=== PATIENT | male | born 1965 | race Caucasian/White ===

== ENCOUNTER → 2017-05-01 | Outpatient (CLI) | payer OTHER ==
--- NOTE | 2017-05-01 18:45 | MRI ---
Procedure: MR LUMBAR SPINE WITHOUT IV CONTRAST Exam Date: 05/01/2017 12:00 AM CDT Ordering Provider: BECCA YUN Clinical Indication: RADICULOPATHY Comparison: None Technique: Multiplanar, multisequence MR images of the lumbar spine were obtained. Findings: No evidence of vertebral body compression deformity or acute fracture. Spinal cord terminates at the mid L1 level and is normal in signal morphology. Cauda equina separate appropriately. T12-L1: Unremarkable. L1-L2: Unremarkable. L2-L3: Unremarkable. L3-L4: Degenerative disc changes without focal disc herniation. No stenosis. L4-L5: Unremarkable. L5-S1: Diffuse disc bulge without significant facet arthrosis. No spinal canal stenosis yet there is mild bilateral neural foraminal stenosis. Prevertebral and paravertebral soft tissues are unremarkable. Impression: Multilevel/multifactorial lumbar spondylosis greatest at the L5-S1 level as outlined above. No high-grade stenosis identified. Electronically signed by: Johann Rivera MD 05/01/2017 6:44 PM CDT
== END | disposition home or self-care (01) ==
LOC: MRI 13:01
PROVIDERS: ATTEND Family Medicine
DX: M54.16 Radiculopathy, lumbar region (principal)

== ENCOUNTER → 2017-08-08 | Outpatient (CLI) | payer OTHER ==
--- NOTE | 2017-08-10 10:13 | RAD ---
EXAM DESCRIPTION: Chest,2 Views CLINICAL HISTORY: BRONCHITIS, ACUTE COMPARISON: 2 view chest 04/30/2013 TECHNIQUE: PA, lateral views. FINDINGS: Lungs: Minimal perihilar peribronchial wall thickening but stable since the prior study. Pleural spaces: No effusion or pneumothorax bilaterally. Heart: Normal size. Pulmonary Vascularity: Not increased. Mediastinum: Not widened. Aorta: Unremarkable. Bony Thorax/Spine: No acute bony thoracic abnormalities. Minimal endplate marginal spurs. IMPRESSION: Recurrent mild bronchitis, but stable since the prior study April 2013. Bacterial pneumonia unlikely. Electronically signed by: Ulises Woodruff MD 08/10/2017 10:12 AM [facility]
== END ==
LOC: RAD 17:29
PROVIDERS: ATTEND Nurse Practitioner Acute Care
DX: J20.9 Acute bronchitis, unspecified (principal)

== ENCOUNTER → 2020-02-03 | Outpatient (CLI) | payer OTHER | LOC: YCFC.O 10:14 | PROVIDERS: ATTEND Nurse Practitioner | DX: Z03.818 Encounter for observation for suspected exposure to other biological agents ruled out (principal); Z20.828 Contact with and (suspected) exposure to other viral communicable diseases ==

== ENCOUNTER 2020-02-14 17:49 | Emergency (ER) | payer OTHER ==
[2020-02-14 18:47] VITALS: TEMP 97
[2020-02-14] MEDS ORDERED: SODIUM CHLORIDE 0.9% 1000ML 1,000 ML IVS ONE (19:00)
[2020-02-14] MEDS ORDERED: IPRATROPIUM/ALBUTEROL 3 ML VIAL NEB ONE (19:01)
[2020-02-14] MEDS ORDERED: ALBUTEROL SULFATE 2.5 MG/3 ML VIAL NEB SCH (19:15)
[2020-02-14 20:06] VITALS: O2SAT 97
--- NOTE | 2020-02-14 20:17 | CT ---
EXAM: Chest w/Contrast HISTORY: worsening cough, sob, fever. 12 days s/p +Covid COMPARISON: 08/08/2017 TECHNIQUE: Contiguous axial images of the chest were obtained from the thoracic inlet to the upper abdomen without intravenous contrast followed by multiplanar reformats. This exam was performed according to our departmental dose-optimization program, which includes automated exposure control, adjustment of the mA and/or kV according to patient size and/or use of iterative reconstruction technique. FINDINGS: Bilateral diffusely scattered groundglass lung opacities with interspersed intralobular septal thickening, with peripheral distribution. No pneumothorax or pleural effusion. Heart size normal. No pericardial effusion. No mediastinal adenopathy. The central airways are patent. Great vessels are normal. Limited visualization of upper abdominal contents is unremarkable for an acute process. No destructive osseous lesion. IMPRESSION: 1. Scattered bilateral groundglass pulmonary opacities consistent with viral pneumonitis. Pattern is typical of COVID. Electronically signed by: Luigi Izquierdo MD 02/14/2020 8:15 PM CDT
--- NOTE | 2020-02-14 20:39 | ED.PDOC ---
History of Present Illness - General Chief Complaint: Respiratory Problem Stated Complaint: "COVID 19 positive" Time Seen by Provider: 02/14/20 18:59 Source: patient, RN notes reviewed, Vital Signs reviewed, family - Exam Limitations: no limitations - History of Present Illness Initial Comments: Patient is a 54-year-old white male who presents with worsening shortness of b reath, intermittent fevers, cough and dyspnea. Patient was diagnosed with COVID approximately 12 days ago. Patient had fever for a couple of days and then began to improve. Approximately 1 week ago patient worsened and was seen at an outside facility that provided him with a injection of Decadron and he improved markedly. Over the last 24 hours patient has been with worsening shortness of breath and dyspnea as well as cough. The cough is nonproductive. Timing/Duration: 1 week Severity: moderate Improving Factors: medication - Decadron Worsening Factors: movement Associated Symptoms: cough, fever/chills, loss of appetite, malaise, shortness of breath, weakness Allergies/Adverse Reactions: Allergies NO KNOWN ALLERGY Allergy (Verified 02/14/20 18:48) Home Medications: Ambulatory Orders Albuterol Inhaler [Ventolin Hfa Inhaler] 1 puff INH PRN #0 10/10/12 Albuterol Sulfate 1 % NEB PRN PRN #0 10/10/12 Montelukast Sodium 10 mg PO HS #0 10/10/12 Olmesartan Medoxomil [Benicar] 40 mg PO HS #0 10/10/12 predniSONE 10 mg PO DAILY #0 tab 10/10/12 Acetamin W/Cod #3 Tab [Tylenol #3 Tab] 1 ea PO Q4-6H PRN #20 tab 10/26/14 Methylprednisolone [Medrol Dose Tito] 4 mg PO DAILY 6 Days #21 tab 02/14/20 Review of Systems - Review of Systems Constitutional: States: see HPI, chills, fever, malaise, weakness EENTM: States: no symptoms reported. Denies: eye pain, blurred vision, double vision Respiratory: States: see HPI, cough, short of breath, wheezing. Denies: stridor Cardiology: States: no symptoms reported. Denies: chest pain, palpitations, syncope Gastrointestinal/Abdominal: States: no symptoms reported. Denies: abdominal pain, constipation, diarrhea, nausea, vomiting Genitourinary: States: no symptoms reported Musculoskeletal: States: no symptoms reported. Denies: back pain, joint pain, neck pain Skin: States: no symptoms reported. Denies: change in color, rash Neurological: States: weakness. Denies: headache, numbness, tingling Endocrine: States: no symptoms reported Hematologic/Lymphatic: States: no symptoms reported All other Systems: No Change from Baseline Past Medical History (General) - Patient Medical History Hx Seizures: No Hx Stroke: No Hx Dementia: No Hx Asthma: Yes Hx of COPD: No Hx Cardiac Disorders: No Hx Congestive Heart Failure: No Hx Pacemaker: No Hx Hypertension: Yes Hx Thyroid Disease: No Hx Diabetes: No Hx Gastroesophageal Reflux: No Hx Renal Disease: No Hx Cancer: No Hx of HIV: No Hx Hepatitis C: No Hx MRSA: No Surgical History: appendectomy - Vaccination History Hx Tetanus, Diphtheria Vaccination: No Hx Pneumococcal Vaccination: No - Social History Hx Tobacco Use: No Hx Alcohol Use: Yes Hx Substance Use: No Hx Substance Use Treatment: No Hx Depression: No Hx Physical Abuse: No Hx Emotional Abuse: No - Female History Patient is a Female of Child Bearing Age (10 -59 yrs old): No Patient : No Family Medical History - Family History Mother Family History: No Known Physical Exam - Physical Exam General Appearance: Alert, Anxious, Obvious distress, Well Developed, Well Groomed, Well Hydrated, Well Nourished Eye Exam: bilateral normal Ears, Nose, Throat: hearing grossly normal, normal ENT inspection, normal pharynx Neck: non-tender, full range of motion, supple Respiratory: chest non-tender, lungs clear, normal breath sounds, respiratory distress - Mild, other - Patient with mild tachypnea. Cardiovascular/Chest: normal peripheral pulses, regular rate, rhythm, no edema, no gallop, no JVD, no murmur Gastrointestinal/Abdominal: normal bowel sounds, non tender, soft, no organomegaly Back Exam: normal inspection, no CVA tenderness, no vertebral tenderness Extremity: normal range of motion, non-tender, normal inspection, no pedal edema Neurologic: manager of compliance II-XII nml as tested, no motor/sensory deficits, alert, normal mood/affect, oriented x 3 Skin Exam: normal color, warm/dry Lymphatic: no adenopathy Progress - Progress Progress: Differential diagnosis: Pneumonia, viral pneumonitis, COVID, influenza among others. 02/14/20 20:43 Patient with continued viral pneumonitis. Patient has been on 2 rounds of antibiotics along with treatment with Plaquenil. At this point in time I do not believe further antibiotics will be helpful. Plan on discharge home on a Medrol Dosepak after a injection of Decadron here. I discussed this plan of care with the patient and his and they voiced understanding and agreement. 02/14/20 21:06 Plan discharge home with a Medrol Dosepak. I have discussed this plan of care with the patient and his and they voiced understanding and agreement. Silverio Carl M.D. #[id number] - Results/Orders Results/Orders: EXAM: Chest w/Contrast HISTORY: worsening cough, sob, fever. 12 days s/p +Covid COMPARISON: 08/08/2017 TECHNIQUE: Contiguous axial images of the chest were obtained from the thoracic inlet to the upper abdomen without intravenous contrast followed by multiplanar reformats. This exam was performed according to our departmental dose-optimization program, which includes automated exposure control, adjustment of the mA and/or kV according to patient size and/or use of iterative reconstruction technique. FINDINGS: Bilateral diffusely scattered groundglass lung opacities with interspersed intralobular septal thickening, with peripheral distribution. No pneumothorax or pleural effusion. Heart size normal. No pericardial effusion. No mediastinal adenopathy. The central airways are patent. Great vessels are no rmal. Limited visualization of upper abdominal contents is unremarkable for an acute process. No destructive osseous lesion. IMPRESSION: 1. Scattered bilateral groundglass pulmonary opacities consistent with viral pneumonitis. Pattern is typical of COVID. Electronically signed by: Luigi Izquierdo MD 02/14/2020 8:15 PM 02/14/20 19:15 Albuterol Sulfate Nebs [Proventil Nebs] 2.5 mg NEB CONTINUOUS Laboratory Results - last 24 hr 02/14/20 02/14/20 19:17 19:17 WBC 5.0 RBC 4.62 L Hgb 14.2 Hct 40.6 L MCV 87.9 MCH 30.7 MCHC 34.9 RDW 12.9 Plt Count 259 MPV 7.7 Absolute Neuts (auto) 3.20 Absolute Lymphs (auto) 1.10 Absolute Monos (auto) 0.50 Absolute Eos (auto) 0.10 Absolute Basos (auto) 0.00 Neutrophils % 65.5 Lymphocytes % 21.5 Monocytes % 10.6 H Eosinophils % 2.0 Basophils % 0.4 Sodium 140 Potassium 4.4 Chloride 104 Carbon Dioxide 27 Anion Gap 13.4 BUN 14 Creatinine 0.93 BUN/Creatinine Ratio 15.1 Random Glucose 101 Serum Osmolality 280.0 Calcium 9.0 Total Bilirubin 1.0 AST 33 ALT 65 H Alkaline Phosphatase 88 Serum Total Protein 7.6 Albumin 4.0 Globulin 3.6 H Albumin/Globulin Ratio 1.1 Lipase 48 Vital Signs 02/14/20 02/14/20 02/14/20 17:50 18:31 18:49 Temperature 97.0 F L Pulse Rate [ 83 83 77 Pulse ox] Respiratory 20 20 16 Rate Blood Pressure 145/91 120/72 [L arm] O2 Sat by Pulse 95 96 Oximetry 02/14/20 02/14/20 19:00 20:00 Temperature Pulse Rate [ 68 84 Pulse ox] Respiratory 16 16 Rate Blood Pressure 125/84 133/95 [L arm] O2 Sat by Pulse 93 L 97 Oximetry Departure - Departure Clinical Impression: COVID-19 Dyspnea Qualifiers: Dyspnea type: unspecified Qualified Code(s): R06.00 - Dyspnea, unspecified Time of Disposition: 21:19 Disposition: Discharge to Home or Self Care Condition: Fair Departure Forms: ED Discharge - Pt. Copy, Patient Portal Self Enrollment Instructions: Coronavirus Disease 2019 (COVID-19) Activity: no exercise, walking as tolerated Referrals: Ly Argueta FNP [Primary Care Provider] - 1-5 Days Prescriptions: Methylprednisolone [Medrol Dose Tito] 4 mg PO DAILY 6 Days #21 tab Home Medications: Ambulatory Orders Albuterol Inhaler [Ventolin Hfa Inhaler] 1 puff INH PRN #0 10/10/12 Albuterol Sulfate 1 % NEB PRN PRN #0 10/10/12 Montelukast Sodium 10 mg PO HS #0 10/10/12 Olmesartan Medoxomil [Benicar] 40 mg PO HS #0 10/10/12 predniSONE 10 mg PO DAILY #0 tab 10/10/12 Acetamin W/Cod #3 Tab [Tylenol #3 Tab] 1 ea PO Q4-6H PRN #20 tab 10/26/14 Methylprednisolone [Medrol Dose Tito] 4 mg PO DAILY 6 Days #21 tab 02/14/20
[2020-02-14] MEDS ORDERED: DEXAMETHASONE INJ 10 MG/ML VIAL IV ONE (21:06)
[2020-02-14 21:26] VITALS: BP 139/85
== END 2020-02-14 21:35 | disposition home or self-care (01) ==
LOC: ER 17:49
DX: U07.1 COVID-19 (principal); J45.909 Unspecified asthma, uncomplicated; I10 Essential (primary) hypertension; Z79.899 Other long term (current) drug therapy
CPT/HCPCS: 36415; 71260; 80053; 83690; 85025; 94640; J1100; J7030; J7611; J7620

== ENCOUNTER → 2020-02-17 | Outpatient (CLI) | payer OTHER ==
--- NOTE | 2020-02-17 10:31 | CT ---
EXAM DESCRIPTION: CT angiogram chest with contrast CLINICAL HISTORY: Dyspnea. Evaluate for pulmonary embolus COMPARISON: 02/14/2020 TECHNIQUE: Spiral CT with multiplanar reformatted images. Intravenous iodinated nonionic contrast. 3-D reconstructions This exam was performed according to our departmental dose-optimization program, which includes automated exposure control, adjustment of the mA and/or kV according to patient size and/or use of iterative reconstruction technique. FINDINGS: Suboptimal timing of contrast bolus limiting evaluation of the peripheral pulmonary arteries. No central pulmonary arterial filling defect to diagnose embolus. Normal contrast enhancement of cardiac chambers and aorta Multifocal patchy bilateral peripheral groundglass infiltrates. Mild interval improvement. No new or increasing infiltrates. No mass or adenopathy in the chest. No pleural effusions Fatty infiltration of liver. No mass or adenopathy in the visualized upper abdomen No acute bony abnormality IMPRESSION: No evidence of pulmonary embolus. Patchy bilateral peripheral groundglass infiltrates consistent with viral pneumonia, Covid. Slight interval improvement Electronically signed by: Adrian Velez MD 02/17/2020 10:30 AM CDT
== END ==
LOC: CT 09:48
PROVIDERS: ATTEND Family Medicine
DX: U07.1 COVID-19 (principal); R79.1 Abnormal coagulation profile

== ENCOUNTER → 2020-05-07 | Outpatient (CLI) | payer OTHER ==
--- NOTE | 2020-05-07 17:28 | RAD ---
EXAM: XR Chest, 2 Views CLINICAL HISTORY: The patient is 55 years old and is Male; COUGH TECHNIQUE: Two views of the chest. COMPARISON: CT chest February 17, 2020 and chest x-ray February 14, 2020. FINDINGS: Lungs: Residual or recurrent left perihilar infiltrate. No pulmonary vascular congestion. Pleural space: Unremarkable. No pneumothorax. Heart: Unremarkable. No cardiomegaly. Mediastinum: Unremarkable. Bones/joints: Vertebral osteophytes. Upper abdomen: No free air in the visualized upper abdomen. IMPRESSION: Residual or recurrent left perihilar infiltrate. Follow-up recommended after an appropriate course of treatment to document resolution. Electronically signed by: Veronica Wells MD 05/07/2020 5:27 PM [employer]
== END ==
LOC: LAB.O 16:48
PROVIDERS: ATTEND Nurse Practitioner
DX: R91.8 Other nonspecific abnormal finding of lung field (principal); R05 Cough; R50.9 Fever, unspecified; R82.90 Unspecified abnormal findings in urine